=== PATIENT | female | born 1960 | race Two or more races ===

== ENCOUNTER 2023-08-12 08:07 | Outpatient (CLI) | payer OTHER ==
[~2023-08-12 08:07] MED LIST: KETO10TA2 PO; SYNTHROID175 MCG
== END 2023-08-12 08:09 | disposition home or self-care (01) ==
LOC: SONOGRAMA 08:07
DX: M12.511 Traumatic arthropathy, right shoulder (principal); M25.411 Effusion, right shoulder

== ENCOUNTER 2023-08-18 07:40 | Outpatient (CLI) | payer OTHER | END 2023-08-18 07:44 | disposition home or self-care (01) | LOC: TOM 07:40 | PROVIDERS: ATTEND Internal Medicine | DX: R10.10 Upper abdominal pain, unspecified (principal) ==

== ENCOUNTER 2023-08-31 07:18 | Outpatient (CLI) | payer OTHER | END 2023-08-31 07:19 | disposition home or self-care (01) | LOC: NUCLEAR 07:18 | DX: I20.9 Angina pectoris, unspecified (principal) | CPT/HCPCS: 78452; 93017; A9500; J0153 ==